=== PATIENT | female | born 1935 | race African-American/Black ===

== ENCOUNTER 2018-10-03 16:17 | Inpatient (IN) | payer MEDICARE, OTHER ==
[~2018-10-03] VITALS: Ht 165.1 cm; Wt 68.0 kg
[2018-10-03 16:25] VITALS: BP 134/36
--- NOTE | 2018-10-03 16:25 | NUR ---
ED Nurse Note: pt brought by ambulance from [facility] due to failure to thrive and possible vaginal bleeding since today. scant bright red blood noted on diaper. pt came with lambert catheter. pt open eyes spontaneousley but non-verbal. skin warm to touch. multiple dressing noted on both legs. dressing noted on sacral area, too. respirations even and non-labored noted. skin warm to touch. foul smell noted from urine. cloudy urine noted. on senior housekeeper. will wait for the further order.
[2018-10-03] MEDS ORDERED: Isovue-300 100ml vial INJ PRN (16:30)
[2018-10-03] MEDS ORDERED: TRAMADOL HCL100 M2 ORAL (16:43)
[2018-10-03] MEDS ORDERED: ASPIR 8181 MG ORAL (16:43)
[2018-10-03] MEDS ORDERED: URECHOLINE25 M1 ORAL (16:43)
[2018-10-03] MEDS ORDERED: CRANBERRY450 M4 PO (16:43)
[2018-10-03] MEDS ORDERED: ASCORBIC ACID500 MG ORAL (16:43)
[2018-10-03] MEDS ORDERED: HUMULIN R100 UNIT/1 SUBQ (16:43)
[2018-10-03] MEDS ORDERED: JUVEN PACKET1 EAC1 PO (16:43)
[2018-10-03] MEDS ORDERED: GLUCERNA 1.5 C237 ML PO (16:43)
[2018-10-03] MEDS ORDERED: TYLENOL EXTRA500 MG ORAL (16:43)
[2018-10-03] MEDS ORDERED: MULTI-VITAMIN-1 EACH PO (16:43)
[2018-10-03] MEDS ORDERED: MILK OF MA400 MG/51 ORAL (16:43)
[2018-10-03] MEDS ORDERED: ARICEPT5 MG ORAL (16:43)
[2018-10-03] MEDS ORDERED: ZINC SULFATE220 M1 ORAL (16:43)
[2018-10-03] MEDS ORDERED: GLYBURIDE2.5 MG PO (16:43)
[2018-10-03] MEDS ORDERED: AMLODIPINE BESYL5 MG ORAL (16:43)
[2018-10-03] MEDS ORDERED: DOCUSATE SODIU100 M2 ORAL (16:43)
[2018-10-03] MEDS ORDERED: FLOMAX0.4 MG ORAL (16:43)
[2018-10-03 17:05] LABS: BASOPHILS % (AUTO) 1.1 % (0.0-2.0); EOSINOPHILS % (AUTO) 2.5 % (0.0-3.0); HEMATOCRIT 37.7 % (37.0-47.0); HEMOGLOBIN 12.1 G/DL (12.0-16.0); LYMPHOCYTES % (AUTO) 13.4 % (20.0-45.0); MEAN CORPUSCULAR VOLUME 89 FL (80-99); MONOCYTES % (AUTO) 5.9 % (1.0-10.0); NEUTROPHILS % (AUTO) 77.1 % (45.0-75.0); PLATELET COUNT 243 K/UL (150-450); RED BLOOD COUNT 4.22 M/UL (4.20-5.40); RED CELL DISTRIBUTION WIDTH 13.9 % (11.6-14.8)
--- NOTE | 2018-10-03 17:16 | NUR ---
ED Nurse Note: lab called.
[2018-10-03 17:18] LABS: APPEARANCE,URINE CLOUDY; BILIRUBIN, URINE NEGATIVE (NEGATIVE); GLUCOSE, URINE (UA) NEGATIVE (NEGATIVE); KETONES,URINE NEGATIVE (NEGATIVE); LEUKOCYTE ESTERASE ,URINE 3+ (NEGATIVE); NITRITE,URINE POSITIVE (NEGATIVE); PH,URINE 5 (4.5-8.0); PROTEIN,URINE 2+ (NEGATIVE); UROBILINOGEN,URINE 1 MG/DL (0.0-1.0)
[2018-10-03 17:19] LABS: COLOR,URINE PALE YELLOW
--- NOTE | 2018-10-03 17:35 | Emergency Room Report ---
History of Present Illness General Chief Complaint: General Complaint Source: Medical Record, EMS Present Illness HPI This patient presents from a assisted facility. The patient is nonverbal at baseline. History is obtained from EMS and from the medical record. The patient has a history of diabetes, hypertension, dementia, chronic kidney disease and CVA. She presents for concern of vaginal bleeding. Apparently, the staff at the assisted facility identified bleeding that they thought was vaginal. The patient is unable to give a history. There is no other information available. Allergies: Coded Allergies: No Known Allergies (Unverified , 05/13/18) Patient History Past Medical History: see triage record, DM, HTN, CAD, GERD, dementia, renal disease Social History: Denies: smoking, alcohol use, drug use Reviewed Nursing Documentation: PMH: Agreed; PSxH: Agreed Nursing Documentation-PMH Hx Diabetes: Yes - Type 2 Hx Gastrointestinal Problems: Yes - GERD Review of Systems All Other Systems: negative except mentioned in HPI Physical Exam Vital Signs Date Time Temp Pulse Resp B/P (MAP) Pulse Ox O2 Delivery O2 Flow Rate FiO2 10/03/18 16:15 98.8 106 19 147/78 95 Room Air Sp02 EP Interpretation: reviewed, normal General Appearance: no apparent distress, alert, GCS 15, non-toxic Head: normocephalic, atraumatic Eyes: bilateral eye normal inspection, bilateral eye PERRL ENT: hearing grossly normal, normal pharynx, no angioedema, normal voice Neck: full range of motion, supple/symm/no masses Respiratory: chest non-tender, lungs clear, normal breath sounds, no respiratory distress, no retraction, no accessory muscle use, speaking full sentences Cardiovascular #1: regular rate, rhythm, no edema Gastrointestinal: normal bowel sounds, non tender, soft, non-distended, no guarding, no rebound Rectal: deferred Musculoskeletal: other - contracted Neurologic: alert, other - unable to fully assess secondary to patient baseline. Psychiatric: mood/affect normal Skin: warm/dry, well hydrated, other - See RN skin exam Medical Decision Making Diagnostic Impression: Primary Impression: Vaginal bleeding Additional Impression: UTI (urinary tract infection) ER Course This elderly female presents with a urinary tract infection. She may also have vaginal bleeding. I did not examine her vaginal canal. She was given broad- spectrum antibiotics and IV fluids and admitted for further evaluation and treatment. Laboratory Tests Test 10/03/18 16:45 10/03/18 17:30 White Blood Count 9.0 K/UL (4.8-10.8) Red Blood Count 4.22 M/UL (4.20-5.40) Hemoglobin 12.1 G/DL (12.0-16.0) Hematocrit 37.7 % (37.0-47.0) Mean Corpuscular Volume 89 FL (80-99) Mean Corpuscular Hemoglobin 28.7 PG (27.0-31.0) Mean Corpuscular Hemoglobin Concent 32.1 G/DL (32.0-36.0) Red Cell Distribution Width 13.9 % (11.6-14.8) Platelet Count 243 K/UL (150-450) Mean Platelet Volume 6.4 FL (6.5-10.1) L Neutrophils (%) (Auto) 77.1 % (45.0-75.0) H Lymphocytes (%) (Auto) 13.4 % (20.0-45.0) L Monocytes (%) (Auto) 5.9 % (1.0-10.0) Eosinophils (%) (Auto) 2.5 % (0.0-3.0) Basophils (%) (Auto) 1.1 % (0.0-2.0) Urine Color Pale yellow Urine Appearance Cloudy Urine pH 5 (4.5-8.0) Urine Specific [place] 1.020 (1.005-1.035) Urine Protein 2+ (NEGATIVE) H Urine Glucose (UA) Negative (NEGATIVE) Urine Ketones Negative (NEGATIVE) Urine Blood 3+ (NEGATIVE) H Urine Nitrite Positive (NEGATIVE) H Urine Bilirubin Negative (NEGATIVE) Urine Urobilinogen 1 MG/DL (0.0-1.0) H Urine Leukocyte Esterase 3+ (NEGATIVE) H Urine RBC 10-15 /HPF (0 - 2) H Urine WBC 20-30 /HPF (0 - 2) H Urine Squamous Epithelial Cells Few /LPF (NONE/OCC) Urine Bacteria Many /HPF (NONE) H Prothrombin Time 10.2 SEC (9.30-11.50) Prothrombin Time INR 1.0 (0.9-1.1) PTT 28 SEC (23-33) Sodium Level 142 MMOL/L (136-145) Potassium Level 4.1 MMOL/L (3.5-5.1) Chloride Level 103 MMOL/L (98-107) Carbon Dioxide Level 30 MMOL/L (21-32) Anion Gap 9 mmol/L (5-15) Blood Urea Nitrogen 17 mg/dL (7-18) Creatinine 1.2 MG/DL (0.55-1.30) Estimate Glomerular Filtration Rate mL/min (>60) Glucose Level 192 MG/DL (74-106) H Calcium Level 9.0 MG/DL (8.5-10.1) Total Bilirubin 0.2 MG/DL (0.2-1.0) Aspartate Amino Transferase (AST) 10 U/L (15-37) L Alanine Aminotransferase (ALT) 18 U/L (12-78) Alkaline Phosphatase 50 U/L (46-116) Total Protein 6.5 G/DL (6.4-8.2) Albumin 2.0 G/DL (3.4-5.0) L Globulin 4.5 g/dL Albumin/Globulin Ratio 0.4 (1.0-2.7) L Lipase 199 U/L (73-393) CT/MRI/US Diagnostic Results CT/MRI/US Diagnostic Results : Imaging Test Ordered: CT abd/pelvis Impression Impression: Evidence of retrococcygeal and lower gluteal fold decubitus ulceration with possible small sinus tract and subcutaneous abscess. No evidence of osseous erosion Evidence of rectal fecal impaction Cholelithiasis Basilar pulmonary atelectatic changes Other findings as noted, including degenerative spondylosis, bilateral renal parapelvic cysts, Peters catheter This agrees with the preliminary interpretation provided overnight by [facility] teleradiology service. Last Vital Signs Date Time Temp Pulse Resp B/P (MAP) Pulse Ox O2 Delivery O2 Flow Rate FiO2 10/03/18 16:15 98.8 106 19 147/78 95 Room Air Disposition: ADMITTED INPATIENT Condition: Serious Suad NyeAmber KING Oct 03, 2018 17:35
--- NOTE | 2018-10-03 17:36 | NUR ---
ED Nurse Note: blood sample redraw and sent.
[2018-10-03] MEDS ORDERED: cefTRIAXone 1 GM in NS 55 ML IVPB ONE (17:45)
[2018-10-03 17:57] LABS: ANION GAP 9 mmol/L (5-15); BLOOD UREA NITROGEN 17 mg/dL (7-18); CARBON DIOXIDE 30 MMOL/L (21-32); CHLORIDE 103 MMOL/L (98-107); CREATININE 1.2 MG/DL (0.55-1.30); POTASSIUM 4.1 MMOL/L (3.5-5.1); SODIUM 142 MMOL/L (136-145)
[2018-10-03 18:03] LABS: ALANINE AMINOTRANSFERASE 18 U/L (12-78); ALBUMIN/GLOBULIN RATIO 0.4 (1.0-2.7); ALKALINE PHOSPHATASE 50 U/L (46-116); ASPARTATE AMINO TRANSFERASE 10 U/L (15-37); BILIRUBIN,TOTAL 0.2 MG/DL (0.2-1.0)
--- NOTE | 2018-10-03 19:06 | NUR ---
HAND-OFF: Report given to HARPREET Chavis. endorsed CRE/VRE/MRSA swab if pt stay in [facility]. endorsed wound pic if pt stay in [facility].
[2018-10-03] MEDS ORDERED: MAALOX ADVANCE770 ML PO (19:35)
[2018-10-03] MEDS ORDERED: PYRIDOXINE HCL50 MG ORAL (19:35)
[2018-10-03] MEDS ORDERED: PROMOD946 ML PO (19:35)
[2018-10-03] MEDS ORDERED: ACETAMINOPHEN325 M1 ORAL (19:40)
[2018-10-03] MEDS ORDERED: TUBERSOL (PPD)0.1 ML IDERMAL (19:40)
--- NOTE | 2018-10-03 21:45 | NUR ---
ED Nurse Note: Pt taken to floor, report given to HARPREET Drew. All belongings taken with patient upstairs, belongings list provided. Pt A/Ox1, VSS. Showing no signs of acute distress. Swabs done. See WCP for skin alterations. Pt taken to floor by rfid technician.
[2018-10-03 22:15] VITALS: BP 166/77
--- NOTE | 2018-10-03 22:33 | NUR ---
NURSE NOTES: Received patient from ER, a/o x1, non verbal, total care, responsive to tactile stimuli, no acute distress noted, RN spoke with Dr. Aguilar in regards to admitting orders, per MD continue with SNF medications including PRN, continue diet from SNF, per MD patient will be transferred to another hospital via ambulance. Awaiting clarification on transfer.
[2018-10-03] MEDS ORDERED: Mylanta II UD 30ml ORAL PRN (23:00)
[2018-10-04] VITALS: BP 150/64
[2018-10-04] MEDS ORDERED: LEVOFLOXAC500 MG/100 IVPB (00:18)
--- NOTE | 2018-10-04 01:11 | NUR ---
NURSE NOTES: Per MD patient will be transferred to [facility] via [place] [facility]. Room # 307 bed 1, report given to Corinne JAVIER
[2018-10-04 04:00] VITALS: BP 137/63
--- NOTE | 2018-10-04 06:58 | NUR ---
HAND-OFF: Report given to Siomara MULLINS.
--- NOTE | 2018-10-04 07:45 | NUR ---
NURSE NOTES: Received patient in bed, awake, alert and oriented x1. Not in respiratory/cardiac distress. No s/s of pain or discomfort per FLACC pain scale. Peters draining well to gravity. Noted with small amount of vaginal bleeding. Proper audelia care done. Bed is in low position and locked. Will continue plan of care. Awaiting for the ambulance for discharge to another hospital per MD order.
--- NOTE | 2018-10-04 08:36 | NUR ---
NURSE NOTES: Patient was picked up by two ambulance personnels from [facility] to [facility] in stable condition. Wound care and audelia care done prior to discharge. One blue blanket given to the ambulance personnel. No new skin issues.
[2018-10-04] MEDS ORDERED: Ascorbic Acid 500mg tab ORAL SCH (09:00)
[2018-10-04] MEDS ORDERED: Docusate 100mg cap ORAL SCH (09:00)
[2018-10-04] MEDS ORDERED: Zinc Sulfate 220mg cap ORAL SCH (09:00)
[2018-10-04] MEDS ORDERED: Aspirin EC 81mg tab ORAL SCH (09:00)
[2018-10-04] MEDS ORDERED: Pyridoxine 50mg tab ORAL SCH (09:00)
[2018-10-04] MEDS ORDERED: Tamsulosin 0.4mg cap ORAL SCH (09:00)
[2018-10-04] MEDS ORDERED: Bethanechol 25mg Tab ORAL SCH (09:00)
--- NOTE | 2018-10-04 09:09 | Diagnostic Imaging Report ---
Clinical Indication: Abdominal pain and vaginal bleeding Technique: No oral contrast utilized, per emergency room physician request IV administration nonionic contrast. Venous phase spiral acquisition obtained through the abdomen and pelvis. Multiplanar reconstructions were generated. Total dose length product 995.71 mGycm. CTDIvol(s) 17.73 mGy. Dose reduction achieved using automated exposure control Comparison: none Findings: There is extensive thickening and infiltration of the retrococcygeal fat. There are gas bubbles and a small fluid collection at the level of the inferior gluteal fold. No definite osseous erosions. There is distention of the rectum by feces, transverse diameter 9 cm. There is equivocal minimal wall thickening of the rectum and there is some infiltration of the perirectal fat. There is a Peters catheter within the bladder. The bladder is decompressed. A few gas bubbles are seen within the bladder lumen, presumably related to the Peters catheter. The uterus and adnexal structures appear unremarkable. No pelvic mass or adenopathy. Normal appendix. No evidence of diverticulosis or diverticulitis. No small bowel distention. No free or loculated intraperitoneal gas or fluid. The distal esophagus, stomach, duodenum are unremarkable. The gallbladder contains a large gallstone. There may be some calcification of the gallbladder wall. The liver, bile ducts, pancreas, spleen, adrenals are unremarkable. There are fairly numerous bilateral renal parapelvic cysts. No renal or ureteral calculi, hydronephrosis, or hydroureter. The included lung bases demonstrate some linear atelectatic changes and groundglass opacities which likely represent compressive atelectatic changes. The bones demonstrate degenerative spondylosis changes. Impression: Evidence of retrococcygeal and lower gluteal fold decubitus ulceration with possible small sinus tract and subcutaneous abscess. No evidence of osseous erosion Evidence of rectal fecal impaction Cholelithiasis Basilar pulmonary atelectatic changes Other findings as noted, including degenerative spondylosis, bilateral renal parapelvic cysts, Peters catheter This agrees with the preliminary interpretation provided overnight by [facility] teleradiology service. The CT scanner at [facility] is accredited by the [employer] and the scans are performed using protocols designed to limit radiation exposure to as low as reasonably achievable to attain images of sufficient resolution adequate for diagnostic evaluation.
--- NOTE | 2018-10-04 15:59 | NUR ---
*-* INSURANCE *-* CLINICALS HAVE BEEN FAXED TO: JERICA SANTIAGO# [id number] / APPROVED P- [phone] F- [phone]
--- NOTE | 2018-10-04 19:00 | History and Physical Report ---
DATE OF ADMISSION: 10/03/2018 DATE OF EVALUATION: 10/04/2018 HISTORY OF PRESENT ILLNESS: This is an 83-year-old female, who was sent from a nursing facility with a history of vaginal bleeding. The patient was nonverbal and no history was obtained from the patient and most of it obtained from electronic medical records and EMS data. The patient is a known hypertensive, diabetic with underlying CKD and CVA. She also has dementia. In the [facility], she was noted to have vaginal bleeding and was sent to the hospital for further workup and care. In the ER, she was found to have some small amount of vaginal bleeding, but she has also had evidence of pyelonephritis. She was admitted to the hospital, awaiting transfer to contracted facility. PAST MEDICAL HISTORY: As discussed above. SOCIAL HISTORY: [facility] resident. SURGERIES: Not known. HOME MEDICATIONS: Reviewed and reconciled in the chart. REVIEW OF SYSTEMS: Unreliable. PHYSICAL EXAMINATION: GENERAL: Reveals elderly female. HEENT: Unremarkable. CHEST: Clear breath sounds. ABDOMEN: Soft. NEUROLOGIC: Nonfocal. PELVIC: Exam not performed. IMPRESSION: 1. Vaginal bleeding. 2. UTI. 3. Diabetes. 4. Hypertension. 5. CVA. DISCUSSION: Her lab brendan at this time is adequate with normal hemoglobin of 12, white count of 9000. Chemistries otherwise unremarkable with a creatinine 1.2. I will initiate her home medications. Also add empiric antibiotics. She will be transferred to contracted facility. We will suggest NURSES' REGISTRY DIRECTOR workup at accepting facility. I also note that she underwent an imaging study overnight, CT abdomen and pelvis, which was essentially unremarkable with a possibility of lower gluteal fold decubitus ulceration and possible fecal impaction. Otherwise, no significant abnormalities are noted. Anthony Aguilar M.D. DR: YANCY JOB#: [id number] CC:
[2018-10-04] MEDS ORDERED: Donepezil 5mg Tab ORAL SCH (21:00)
[2018-10-04] MEDS ORDERED: Milk of Magnesia 30ml Ud ORAL SCH (21:00)
[2018-10-05] MEDS ORDERED: Levofloxacin 250mg/D5W 50ml IVPB SCH (09:00)
--- NOTE | 2018-10-06 07:06 | Discharge Summary ---
Discharge Summary Discharge Summary _ DATE OF ADMISSION: 10/03/2018 DATE OF DISCHARGE: 10/04/2018 DISCHARGED BY: Dr. Aguilar REASON FOR ADMISSION: 83 years old female, resident of shelter facility, with past medical history of hypertension, diabetes with underlying chronic kidney disease, history of CVA, dementia, was sent from the nursing facility for evaluation of vaginal bleeding. In emergency department vital signs were stable. Laboratory workup revealed no leukocytosis, stable hemoglobin and hematocrit: hemoglobin 12.1 hematocrit 37.7. Chemistry was stable. BUN 17, creatinine 1.2. Urinalysis revealed evidence of UTI. CT of the abdomen and pelvis revealed evidence of rectal fecal impaction. Cholelithiasis noted. Evidence of sacrococcygeal and lower gluteal fold decubitus ulceration with possible small sinus tract of subcutaneous abscess, but no evidence of osseous erosion. Patient pancultured, started on empiric antibiotic and was admitted for further management. HOSPITAL COURSE: Patient admitted to medical surgical floor. Patient started on empiric antibiotic. Home medications were resumed. Supportive care provided. Blood pressure was managed with calcium channel nakul. Antiplatelet therapy with aspirin was continued. Aricept continued. Bowel regimen instituted. At the time of this dictation , urine culture showed growth of E. coli and Staph aureus, susceptible to antibiotic, patient received. Patient was transferred to contracted facility/[facility] as per her insurance. Recommended EXPENSE ANALYST workup and the accepting facility FINAL DIAGNOSES: Vaginal bleeding UTI Diabetes Hypertension History of CVA DISCHARGE MEDICATIONS: See Medication Reconciliation list. DISCHARGE INSTRUCTIONS: Patient was transferred to [facility] as per insurance for further management Follow-up with medical doctor at the accepting facility I have been assigned to dictate discharge summary for this account. I was not involved in the patient's management. Deena Mckeon NP Oct 06, 2018 07:06
== END 2018-10-04 08:36 | disposition short-term general hospital (02) | DRG 760 ==
LOC: EDBD 16:17 → EMR 17:40 → 4E 20:56 → EDBEDREQ 21:07
DX: N93.9 Abnormal uterine and vaginal bleeding, unspecified (principal); N39.0 Urinary tract infection, site not specified; I12.9 Hypertensive chronic kidney disease with stage 1 through stage 4 chronic kidney disease, or unspecified chronic kidney disease; N18.9 Chronic kidney disease, unspecified; E11.9 Type 2 diabetes mellitus without complications; B96.20 Unspecified Escherichia coli [E. coli] as the cause of diseases classified elsewhere; A49.01 Methicillin susceptible Staphylococcus aureus infection, unspecified site; Z86.73 Personal history of transient ischemic attack (TIA), and cerebral infarction without residual deficits
CPT/HCPCS: 36415; 74177; 80053; 81003; 83690; 85025; 85610; 85730; 87070; 87081; 87086; 87181; 87205; 96365; 99285

== ENCOUNTER 2018-10-27 17:15 | Emergency (ER) | payer MEDICARE ==
[~2018-10-27] VITALS: Ht 167.6 cm; Wt 72.6 kg
[~2018-10-27 17:15] MED LIST: ACETAMINOPHEN325 M1 ORAL; AMLODIPINE BESYL5 MG ORAL; ARICEPT5 MG ORAL; ASCORBIC ACID500 MG ORAL; ASPIR 8181 MG ORAL; CRANBERRY450 M4 PO; DOCUSATE SODIU100 M2 ORAL; FLOMAX0.4 MG ORAL; GLUCERNA 1.5 C237 ML PO; GLYBURIDE2.5 MG PO; HUMULIN R100 UNIT/1 SUBQ; JUVEN PACKET1 EAC1 PO; LEVOFLOXAC500 MG/100 IVPB; MAALOX ADVANCE770 ML PO; MILK OF MA400 MG/51 ORAL; MULTI-VITAMIN-1 EACH PO; PROMOD946 ML PO; PYRIDOXINE HCL50 MG ORAL; TRAMADOL HCL100 M2 ORAL; TUBERSOL (PPD)0.1 ML IDERMAL; TYLENOL EXTRA500 MG ORAL; URECHOLINE25 M1 ORAL; ZINC SULFATE220 M1 ORAL
[2018-10-27] MEDS ORDERED: Solu-MEDROL 125mg Inj IVP ONE (18:00)
[2018-10-27] MEDS ORDERED: CLONIDINE1 EAC1 TD (18:26)
[2018-10-27] MEDS ORDERED: COLLAGENASE1 EACH TOPIC (18:26)
[2018-10-27] MEDS ORDERED: GLUCOSE4 GM PO (18:26)
[2018-10-27] MEDS ORDERED: GLUCAGON W/DILUE1 MG IJ (18:26)
[2018-10-27] MEDS ORDERED: MEGESTROL400 MG/11 PO (18:26)
[2018-10-27] MEDS ORDERED: FERROUS SU300 MG/5 M ORAL (18:26)
[2018-10-27] MEDS ORDERED: GENTAMICIN SULF15 G2 TOPIC (18:26)
[2018-10-27] MEDS ORDERED: TRAMADOL HCL50 MG ORAL (18:33)
[2018-10-27] MEDS: Albuterol ud Inhalation HHN SCH ×2 (18:33→19:06)
[2018-10-27] MEDS: Ipratropium 0.02% Inh Soln 2.5ml UD HHN SCH ×2 (18:33→19:06)
[2018-10-27 18:38] LABS: APPEARANCE,URINE VERY CLOUDY; BILIRUBIN, URINE NEGATIVE (NEGATIVE); COLOR,URINE PALE YELLOW; GLUCOSE, URINE (UA) NEGATIVE (NEGATIVE); KETONES,URINE NEGATIVE (NEGATIVE); LEUKOCYTE ESTERASE ,URINE 3+ (NEGATIVE); NITRITE,URINE NEGATIVE (NEGATIVE); PH,URINE 5 (4.5-8.0); PROTEIN,URINE 3+ (NEGATIVE); UROBILINOGEN,URINE NORMAL MG/DL (0.0-1.0)
[2018-10-27 18:39] VITALS: BP 156/85
[2018-10-27 18:40] LABS: BASOPHILS % (AUTO) 0.7 % (0.0-2.0); EOSINOPHILS % (AUTO) 3.2 % (0.0-3.0); HEMATOCRIT 27.7 % (37.0-47.0); LYMPHOCYTES % (AUTO) 8.5 % (20.0-45.0); MEAN CORPUSCULAR VOLUME 88 FL (80-99); MONOCYTES % (AUTO) 6.2 % (1.0-10.0); NEUTROPHILS % (AUTO) 81.4 % (45.0-75.0); PLATELET COUNT 168 K/UL (150-450); RED BLOOD COUNT 3.17 M/UL (4.20-5.40); RED CELL DISTRIBUTION WIDTH 15.8 % (11.6-14.8); WHITE BLOOD COUNT 9.8 K/UL (4.8-10.8)
[2018-10-27 19:04] LABS: ALANINE AMINOTRANSFERASE 60 U/L (12-78); ALBUMIN 1.7 G/DL (3.4-5.0); ALBUMIN/GLOBULIN RATIO 0.4 (1.0-2.7); ALKALINE PHOSPHATASE 45 U/L (46-116); ANION GAP 7 mmol/L (5-15); ASPARTATE AMINO TRANSFERASE 17 U/L (15-37); BILIRUBIN,TOTAL 0.3 MG/DL (0.2-1.0); BLOOD UREA NITROGEN 22 mg/dL (7-18); CALCIUM 8.5 MG/DL (8.5-10.1); CARBON DIOXIDE 31 MMOL/L (21-32); CHLORIDE 108 MMOL/L (98-107); CKMB 1.4 NG/ML (0.0-3.6); CREATINE KINASE 84 U/L (26-308); CREATININE 1.4 MG/DL (0.55-1.30); SODIUM 145 MMOL/L (136-145)
[2018-10-27 19:06] LABS: POTASSIUM 2.7 MMOL/L (3.5-5.1)
[2018-10-27] MEDS ORDERED: NS w/KCl 40mEq 1,000 ML IV SCH (19:30)
[2018-10-27 19:34] VITALS: BP 157/70
[2018-10-27] MEDS ORDERED: Piperacillin/Tazobactam 3.375 GM in NS 110 ML IVPB ONE (19:45)
[2018-10-27] MEDS ORDERED: Azithromycin 500 MG in NS 275 ML IV ONE (19:45)
--- NOTE | 2018-10-27 20:48 | Emergency Room Report ---
History of Present Illness General Chief Complaint: Upper Respiratory Illness Source: Medical Record Present Illness HPI 83-year-old female presents ED for evaluation. Brought in by EMS from SNF for cough and wheezing and shortness of breath 1 day. Afebrile. Patient denies any chest pain. Denies fevers or chills. No other aggravating relieving factors. Denies any other associated symptoms Allergies: Coded Allergies: No Known Allergies (Unverified , 05/13/18) Patient History Past Medical History: DM, GERD Past Surgical History: none Pertinent Family History: none Social History: Denies: smoking, alcohol use, drug use Now: No Immunizations: UTD Reviewed Nursing Documentation: PMH: Agreed; PSxH: Agreed Nursing Documentation-PMH Past Medical History: No History, Except For Hx Diabetes: Yes - Type 2 Hx Cancer: No Hx Gastrointestinal Problems: Yes - GERD Hx Neurological Problems: No Review of Systems All Other Systems: limited Physical Exam Vital Signs Date Time Temp Pulse Resp B/P (MAP) Pulse Ox O2 Delivery O2 Flow Rate FiO2 10/27/18 07:00 80 18 100 Room Air 10/27/18 17:18 99.9 154/53 10/27/18 18:26 21 Sp02 EP Interpretation: reviewed, normal General Appearance: no apparent distress, alert, GCS 15, non-toxic Head: normocephalic Eyes: bilateral eye normal inspection, bilateral eye PERRL ENT: normal ENT inspection Neck: normal inspection Respiratory: crackles, wheezing Cardiovascular #1: regular rate, rhythm, no edema Gastrointestinal: normal bowel sounds, non tender, soft, non-distended, no guarding, no rebound Rectal: deferred Genitourinary: no CVA tenderness Musculoskeletal: back normal Neurologic: alert, oriented x3, responsive, motor strength/tone normal, sensory intact, speech normal Psychiatric: normal inspection Skin: normal inspection Lymphatic: normal inspection Medical Decision Making Diagnostic Impression: Primary Impression: Pneumonia Qualified Codes: J18.9 - Pneumonia, unspecified organism Additional Impressions: UTI (urinary tract infection) Qualified Codes: N39.0 - Urinary tract infection, site not specified Hypokalemia ER Course Hospital Course 83 yo F presents with SOB, cough Differential diagnoses include: URI, bronchitis, asthma/COPD, pneumonia Clinical course Patient placed on stretcher. After initial history, physical exam reveals an elderly female in no acute distress. Bilateral TM unremarkable. No pharyngeal erythema. No tonsillar exudates. No lymphadenopathy. crackles/wheezing on exam I ordered labs, IV fluids, nebs, chest x-ray, EKG Labs reviewed- no leukocytosis, hemoglobin/hematocrit stable, K 2.7, lactic ok, trop 0.082, UA + bacteria EKG - afib, no acute ischemic changes intperpreed by me Chest x-ray shows diffuse right-sided interstitial congestion. Potassium repleted. Antibiotics given. IV fluids given. Based on insurance patient will be transferred. Patient is DO NOT RESUSCITATE/comfort Diagnosis - pneumonia, UTI, hypokalemia Transferred in serious condition Labs Test 10/27/18 18:10 White Blood Count 9.8 K/UL (4.8-10.8) Red Blood Count 3.17 M/UL (4.20-5.40) Hemoglobin 9.0 G/DL (12.0-16.0) Hematocrit 27.7 % (37.0-47.0) Mean Corpuscular Volume 88 FL (80-99) Mean Corpuscular Hemoglobin 28.3 PG (27.0-31.0) Mean Corpuscular Hemoglobin Concent 32.3 G/DL (32.0-36.0) Red Cell Distribution Width 15.8 % (11.6-14.8) Platelet Count 168 K/UL (150-450) Mean Platelet Volume 7.8 FL (6.5-10.1) Neutrophils (%) (Auto) 81.4 % (45.0-75.0) Lymphocytes (%) (Auto) 8.5 % (20.0-45.0) Monocytes (%) (Auto) 6.2 % (1.0-10.0) Eosinophils (%) (Auto) 3.2 % (0.0-3.0) Basophils (%) (Auto) 0.7 % (0.0-2.0) Urine Color Pale yellow Urine Appearance Very cloudy Urine pH 5 (4.5-8.0) Urine Specific [place] 1.015 (1.005-1.035) Urine Protein 3+ (NEGATIVE) Urine Glucose (UA) Negative (NEGATIVE) Urine Ketones Negative (NEGATIVE) Urine Blood 4+ (NEGATIVE) Urine Nitrite Negative (NEGATIVE) Urine Bilirubin Negative (NEGATIVE) Urine Urobilinogen Normal MG/DL (0.0-1.0) Urine Leukocyte Esterase 3+ (NEGATIVE) Urine RBC 0-2 /HPF (0 - 2) Urine WBC Tntc /HPF (0 - 2) Urine Squamous Epithelial Cells Moderate /LPF (NONE/OCC) Urine Bacteria Moderate /HPF (NONE) Urine Yeast Many /HPF (NONE) Sodium Level 145 MMOL/L (136-145) Potassium Level 2.7 MMOL/L (3.5-5.1) Chloride Level 108 MMOL/L (98-107) Carbon Dioxide Level 31 MMOL/L (21-32) Anion Gap 7 mmol/L (5-15) Blood Urea Nitrogen 22 mg/dL (7-18) Creatinine 1.4 MG/DL (0.55-1.30) Estimat Glomerular Filtration Rate mL/min (>60) Glucose Level 162 MG/DL (74-106) Lactic Acid Level 2.00 mmol/L (0.4-2.0) Calcium Level 8.5 MG/DL (8.5-10.1) Total Bilirubin 0.3 MG/DL (0.2-1.0) Aspartate Amino Transf (AST/SGOT) 17 U/L (15-37) Alanine Aminotransferase (ALT/SGPT) 60 U/L (12-78) Alkaline Phosphatase 45 U/L (46-116) Total Creatine Kinase 84 U/L (26-308) Creatine Kinase MB 1.4 NG/ML (0.0-3.6) Creatine Kinase MB Relative Index 1.6 Troponin I 0.082 ng/mL (0.000-0.056) Pro-B-Type Natriuretic Peptide 33507 pg/mL (0-125) Total Protein 5.9 G/DL (6.4-8.2) Albumin 1.7 G/DL (3.4-5.0) Globulin 4.2 g/dL Albumin/Globulin Ratio 0.4 (1.0-2.7) EKG Diagnostic Results Rate: normal Rhythm: other - afib ST Segments: no acute changes ASA given to the pt in ED: No Rhythm Strip Diag. Results EP Interpretation: yes Rhythm: no PVC's, no ectopy Chest X-Ray Diagnostic Results Chest X-Ray Diagnostic Results : Chest X-Ray Ordered: Yes # of Views/Limited/Complete: 1 View Indication: Shortness of Breath EP Interpretation: Yes Interpretation: no pneumothorax, other - increased interstitial consolidation on right Impression: Other - pneumonia Electronically Signed by: Electronically signed by Andrade Verde MD Last Vital Signs Date Time Temp Pulse Resp B/P (MAP) Pulse Ox O2 Delivery O2 Flow Rate FiO2 10/27/18 19:45 90 18 100 Room Air 21 10/27/18 19:34 99.1 157/70 Status: improved Disposition: XFER SHT-TRM HOSP Condition: Serious Referrals: Mikey Suero DO (PCP) Andrade Verde MD Oct 27, 2018 20:48
[2018-10-27 21:35] VITALS: BP 154/66
[2018-10-27 23:36] VITALS: BP 148/72
[2018-10-27 23:45] VITALS: BP 148/72
--- NOTE | 2018-10-28 12:04 | Diagnostic Imaging Report ---
Indication: Dyspnea Comparison: None A single view chest radiograph was obtained. Findings: Study limited as the patient is altered and contracted. There is attenuation of the right side of the chest due to soft tissues. There may be interstitial edema or pneumonitis present. The heart is enlarged. Lung volumes are low. Bones are osteopenic. IMPRESSION: Limited evaluation due to difficulty in positioning the patient. Suspected CHF versus pneumonitis. Recommend repeat
--- NOTE | 2018-10-28 21:57 | Cardiology Report ---
APPROVED REPORT EKG Measurement Heart [id number] Atrial fibrillation with premature ventricular or aberrantly conducted complexes Low voltage QRS Prolonged QT Abnormal ECG
== END 2018-10-27 23:45 | disposition short-term general hospital (02) ==
LOC: EDBD 17:15 → EMR 17:39 → EDBEDREQSVC 18:04 → EMR 23:45
DX: J18.9 Pneumonia, unspecified organism (principal); N39.0 Urinary tract infection, site not specified; E87.6 Hypokalemia; E11.9 Type 2 diabetes mellitus without complications; K21.9 Gastro-esophageal reflux disease without esophagitis
CPT/HCPCS: 36415; 71045; 80053; 81003; 82550; 82553; 83605; 83880; 84484; 85025; 86710; 87040; 87070; 87081; 87086; 87205; 93005; 94640; 94664; 96365; 96368; 96375; 99284; J0456; J2543; J2930; J7050